=== PATIENT | male | born 1960 | race Caucasian/White ===

== ENCOUNTER 2017-08-03 16:38 | Emergency (ER) | payer OTHER ==
[~2017-08-03] VITALS: Ht 182.9 cm; Wt 77.1 kg
[~2017-08-03 16:38] MED LIST: ALBU90OI INH; ALBU90OI61 INH; CIPR500 PO; CLON.5 PO; CLON1 PO; DUTA.5 PO; FENO145 PO; FENO48 PO; FLUO20 PO; GABA100 PO; GUAI600T33 PO; HYDHCL25 PO; HYDPAM50 PO; HYDR1TAB94 PO; IBUP600 PO; LEVO750 PO; LISHYD2025 PO; LORA1 PO; LOVA40 PO; Lisinopril2.5 MG; MARIJUANNA; MELO7.5 PO; OMEPRAZOLE MAGN20 MG PO; PARO20 PO; PRED10 PO; Percocet 5-3251 EACH PO; RANI150 PO; SAPHRIS5 MG SL; SENN187 PO; SPIREVA; Silver Sulfadi400 GM TOP; TAMS.4ER PO; TIOT18; TIOTROPIUM INH
[2017-08-03 18:20] LABS: BASOPHILS ABSOLUTE AUTO 0.03 K/mm3 (0.00-0.23); BASOPHILS PERCENT AUTO 0 % (0-2); EOSINOPHILS ABSOLUTE AUTO 0.02 K/mm3 (0.00-0.68); EOSINOPHILS PERCENT AUTO 0 % (0-6); Hematocrit 49.8 % (37.0-53.0); Hemoglobin 16.4 g/dL (13.5-17.5); IMMATURE GRAN ABSOLUTE AUTO 0.05 K/mm3 (0.00-0.10); IMMATURE GRAN PERCENT AUTO 0 % (0-1); LYMPHOCYTES ABSOLUTE AUTO 1.78 K/mm3 (0.84-5.20); LYMPHOCYTES PERCENT AUTO 16 % (21-46); MONOCYTES ABSOLUTE AUTO 0.66 K/mm3 (0.16-1.47); MONOCYTES PERCENT AUTO 6 % (4-13); Mean Corpuscular HGB 28.8 pg (26.0-34.0); Mean Corpuscular HGB Conc 32.9 g/dL (31.5-36.5); Mean Corpuscular Volume 88 fL (80-100); NEUTROPHILS ABSOLUTE AUTO 8.71 K/mm3 (1.96-9.15); NEUTROPHILS PERCENT AUTO 77 % (41-73); Platelet Count 407 K/mm3 (150-400); RDW Coefficient Variation 14.2 % (11.7-14.2); Red Blood Cell Count 5.69 M/mm3 (4.30-5.90); White Blood Cell Count 11.25 K/mm3 (4.00-11.30)
[2017-08-03 18:34] LABS: Troponin I <0.015 ng/mL (0.000-0.040)
[2017-08-03 18:40] LABS: Alanine Aminotransfer (ALT/SGP 33 U/L (12-78); Albumin, Blood 3.5 g/dL (3.4-5.0); Albumin/Globulin Ratio 0.7 (0.8-1.8); Alk Phos 77 U/L (50-136); Anion Gap 8 mmol/L (6-16); Aspartate Aminotrans (AST/SGOT 44 U/L (12-37); Bilirubin, Total 0.7 mg/dL (0.1-1.0); Blood Urea Nitrogen 24 mg/dL (8-24); Bun/Creatinine Ratio 14.9 (12.0-20.0); CO2, Blood 27 mmol/L (21-32); Calcium, Blood 9.3 mg/dL (8.5-10.1); Chloride, Blood 100 mmol/L (98-108); Creatinine, Blood 1.61 mg/dL (0.60-1.20); Globulin, Blood 5.2 g/dL (2.2-4.0); Glomerular Filtration Rate 47 (60-); Glucose, Blood 127 mg/dL (70-99); Potassium, Blood 6.5 mmol/L (3.5-5.5); Sodium, Blood 135 mmol/L (136-145); Total Protein, Blood 8.7 g/dL (6.4-8.2)
[2017-08-03 20:27] LABS: Albumin, Blood 3.3 g/dL (3.4-5.0); Albumin/Globulin Ratio 0.8 (0.8-1.8); Bilirubin, Total 0.3 mg/dL (0.1-1.0); Bun/Creatinine Ratio 14.7 (12.0-20.0); Calcium, Blood 9.2 mg/dL (8.5-10.1); Creatinine, Blood 1.63 mg/dL (0.60-1.20); Globulin, Blood 4.3 g/dL (2.2-4.0); Total Protein, Blood 7.6 g/dL (6.4-8.2)
== END 2017-08-03 21:39 | disposition home or self-care (01) ==
LOC: ER 16:38
PROVIDERS: Emergency Medicine
DX: T78.3XXA Angioneurotic edema, initial encounter (principal); T46.4X5A Adverse effect of angiotensin-converting-enzyme inhibitors, initial encounter; I95.1 Orthostatic hypotension; R55 Syncope and collapse; I10 Essential (primary) hypertension; J45.909 Unspecified asthma, uncomplicated; F17.210 Nicotine dependence, cigarettes, uncomplicated; Z88.0 Allergy status to penicillin; Z88.8 Allergy status to other drugs, medicaments and biological substances; Z79.899 Other long term (current) drug therapy
CPT/HCPCS: 36415; 71046; 80053; 84484; 85025; 93005; 93010; 96360; 96361; 99283; J7030

== ENCOUNTER → 2017-08-26 | Outpatient (CLI) | payer OTHER ==
[2017-08-26 13:37] LABS: Uric Acid, Urine 31.5 mg/dL (7.5-49.5)
[2017-08-26 13:40] LABS: Microalbumin, Urine Quant. 5.81 mg/L (0.000-20.000)
[2017-08-26 15:40] LABS: Protein, Urine Quantitative 7.6 mg/dL (0.0-11.9)
[2017-08-26 16:26] LABS: Phosphorus, Urine 68.6 mg/dL (20.0-60.0)
[2017-08-26 16:28] LABS: Calcium, Urine 20.3 mg/dL (2.0-17.5); Calcium, Urine Calculation 314.7 mg/24hrs (42.0-353.0)
== END | disposition home or self-care (01) ==
LOC: LAB UCHC 07:00 → LAB SHORT 07:00 → LAB FUT 08-24 15:35
PROVIDERS: Internal Medicine Nephrology
DX: N18.2 Chronic kidney disease, stage 2 (mild) (principal); D63.1 Anemia in chronic kidney disease; E78.00 Pure hypercholesterolemia, unspecified; N25.81 Secondary hyperparathyroidism of renal origin; E55.9 Vitamin D deficiency, unspecified; R76.9 Abnormal immunological finding in serum, unspecified; R94.6 Abnormal results of thyroid function studies
CPT/HCPCS: 81050; 82043; 82131; 82340; 82507; 82570; 83945; 84105; 84133; 84156; 84300; 84560

== ENCOUNTER 2018-06-25 10:19 | Emergency (ER) | payer OTHER ==
[~2018-06-25] VITALS: Ht 182.9 cm; Wt 93.9 kg
[2018-06-25] MEDS ORDERED: TRAM50 PO (10:52)
== END 2018-06-25 10:59 | disposition home or self-care (01) ==
LOC: ER 10:19
DX: M25.561 Pain in right knee (principal); I10 Essential (primary) hypertension; J45.909 Unspecified asthma, uncomplicated; F17.210 Nicotine dependence, cigarettes, uncomplicated; Z88.0 Allergy status to penicillin; Z79.899 Other long term (current) drug therapy
CPT/HCPCS: 99283

== ENCOUNTER 2018-09-09 10:24 | Emergency (ER) | payer OTHER ==
[~2018-09-09] VITALS: Ht 182.9 cm; Wt 104.3 kg
[~2018-09-09 10:24] MED LIST changes: +TRAM50 PO
[2018-09-09] MEDS ORDERED: HYDR1TAB94 PO (12:21)
== END 2018-09-09 12:54 | disposition home or self-care (01) ==
LOC: ER 10:24
DX: M25.461 Effusion, right knee (principal); Z88.0 Allergy status to penicillin; Z88.8 Allergy status to other drugs, medicaments and biological substances; Z79.899 Other long term (current) drug therapy; I10 Essential (primary) hypertension; J45.909 Unspecified asthma, uncomplicated; F17.210 Nicotine dependence, cigarettes, uncomplicated
CPT/HCPCS: 29505; 73562-RT; 99283-25; A9270-GY

== ENCOUNTER → 2018-09-21 | Outpatient (CLI) | payer OTHER ==
[2018-09-21 18:24] LABS: Percent Saturation 51.7 % (20.0-50.0)
== END | disposition home or self-care (01) ==
LOC: LAB SHORT 13:30 → LAB UCHC 13:30 → LAB FUT 09-17 09:30 → EDSTATUS 09-17 09:30
PROVIDERS: Nurse Practitioner Family
DX: E04.1 Nontoxic single thyroid nodule (principal)
CPT/HCPCS: 82728; 83540; 83550

== ENCOUNTER → 2019-01-05 | Outpatient (CLI) | payer OTHER ==
[~2019-01-05] MED LIST changes: +FENO145
[2019-01-05 15:43] LABS: U Amphetamine Screen DETECTED; U Barbituate Screen Not Detected; U Benzodiazapine Screen Not Detected; U Buprenorphine Screen Not Detected; U Cannabinoids Screen DETECTED; U Cocaine Screen Not Detected; U Methadone Screen Not Detected; U Methamphetamine Screen Not Detected; U Opiates Screen Not Detected; U Oxycodone Screen Not Detected; U Phencyclidine Screen Not Detected; U Propoxyphene Screen Not Detected
== END | disposition home or self-care (01) ==
LOC: LAB SHORT 14:42 → LAB 14:42
PROVIDERS: Registered Nurse Psychiatric/Mental Health
DX: Z51.81 Encounter for therapeutic drug level monitoring (principal); F15.99 Other stimulant use, unspecified with unspecified stimulant-induced disorder; Z79.899 Other long term (current) drug therapy
CPT/HCPCS: G0480

== ENCOUNTER 2019-02-03 07:14 | Day surgery (SDC) | payer OTHER ==
[~2019-02-03] VITALS: Ht 182.9 cm; Wt 100.3 kg
--- NOTE | 2019-02-03 09:29 | NUR ---
02/03/19 0929 Joss Nur SCRATCHES AND ABRASIONS NOTED ON RIGHT MELENDEZ AND CALF. ALL SCABBED NONE OPEN.
== END 2019-02-03 11:16 | disposition home or self-care (01) ==
LOC: ORSCSDS 07:14
PROVIDERS: Orthopaedic Surgery
PROC: 0SBC4ZZ Excision of Right Knee Joint, Percutaneous Endoscopic Approach (ICD-10-PCS; principal; 2019-02-03 08:45)
DX: S83.281A Other tear of lateral meniscus, current injury, right knee, initial encounter (principal); I10 Essential (primary) hypertension; J44.9 Chronic obstructive pulmonary disease, unspecified; Z87.891 Personal history of nicotine dependence; Z79.899 Other long term (current) drug therapy
CPT/HCPCS: J0171; J0690; J1100; J1885; J2250; J2405; J2704; J3010; J7120

== ENCOUNTER → 2019-06-15 | Outpatient (CLI) | payer OTHER ==
[2019-06-15 20:12] LABS: U Amphetamine Screen Not Detected; U Barbituate Screen Not Detected; U Benzodiazapine Screen Not Detected; U Buprenorphine Screen Not Detected; U Cannabinoids Screen DETECTED; U Cocaine Screen Not Detected; U Methadone Screen Not Detected; U Methamphetamine Screen Not Detected; U Opiates Screen Not Detected; U Oxycodone Screen Not Detected; U Phencyclidine Screen Not Detected; U Propoxyphene Screen Not Detected
== END | disposition home or self-care (01) ==
LOC: LAB SHORT 17:59 → LAB 17:59
PROVIDERS: Registered Nurse Psychiatric/Mental Health
DX: Z51.81 Encounter for therapeutic drug level monitoring (principal); Z79.899 Other long term (current) drug therapy